=== PATIENT | female | born 1985 | race Caucasian/White ===

== ENCOUNTER 2017-10-19 13:09 | Emergency (ER) | payer MEDICAID | END 2017-10-19 14:34 | disposition left against medical advice (07) | LOC: ED 14:28 | DX: K12.2 Cellulitis and abscess of mouth (principal); Z53.21 Procedure and treatment not carried out due to patient leaving prior to being seen by health care provider ==

== ENCOUNTER 2018-06-21 14:31 | Emergency (ER) | payer MEDICAID ==
[~2018-06-21] VITALS: Ht 160 cm; Wt 65.0 kg
[2018-06-21 14:45] VITALS: BP 91/62
== END 2018-06-21 15:10 | disposition home or self-care (01) ==
LOC: ED 15:00
DX: O26.892 Other specified pregnancy related conditions, second trimester (principal); K02.9 Dental caries, unspecified; K08.89 Other specified disorders of teeth and supporting structures; O99.332 Smoking (tobacco) complicating pregnancy, second trimester; Z3A.27 27 weeks gestation of pregnancy
CPT/HCPCS: 99283

== ENCOUNTER 2019-08-16 15:01 | Emergency (ER) | payer MEDICAID ==
[~2019-08-16] VITALS: Ht 162.6 cm; Wt 66.9 kg
[2019-08-16 15:05] VITALS: BP 98/63
--- NOTE | 2019-08-16 15:52 | NUR ---
PT HERE WITH C/O DENTAL PAIN.
--- NOTE | 2019-08-16 15:53 | NUR ---
Patient/Caregiver given discharge instructions and they have confirmed that they understand the instructions. Patient ambulatory with steady gait.
== END 2019-08-16 16:14 | disposition home or self-care (01) ==
LOC: ED 16:00
DX: K02.9 Dental caries, unspecified (principal); K08.89 Other specified disorders of teeth and supporting structures
CPT/HCPCS: 99283